=== PATIENT | male | born 1985 | race Caucasian/White ===

== ENCOUNTER 2017-05-01 11:54 | Emergency (ER) | payer OTHER ==
[2017-05-01] MEDS ORDERED: Lidocaine 1% 20 ML MDV INJECT ONE (12:29)
--- NOTE | 2017-05-01 12:30 | EDM.PDOC ---
ED HPI GENERAL MEDICAL PROBLEM - General Chief Complaint: Laceration Stated Complaint: CUT FINGER L HAND Time Seen by Provider: 05/01/17 12:30 Source of Information: Reports: Patient History Limitations: Reports: No Limitations - History of Present Illness INITIAL COMMENTS - FREE TEXT/NARRATIVE: Celestino is a 31 year old male who presents to the ED today after sustaining injury to left fourth digit after slicing turkey at work. Patient works in the [employer] at [employer]. Patient denies any other injuries. DT is not up to date. Onset: Today Left 4-Ring finger Pain Score (Numeric/FACES): 0 - Related Data Allergies Allergy/AdvReac Type Severity Reaction Status Date / Time No Known Allergies Allergy Verified 05/01/17 12:27 Past Medical History Dermatologic History: Reports: Other (See Below) Other Dermatologic History: laceration L ring finger Social & Family History - Tobacco Use Smoking Status *Q: Never Smoker - Caffeine Use Caffeine Use: Reports: None - Alcohol Use Days Per Week of Alcohol Use: 2 Number of Drinks Per Day: 1 Total Drinks Per Week: 2 - Recreational Drug Use Recreational Drug Use: No ED ROS GENERAL - Review of Systems Review Of Systems: ROS reveals no pertinent complaints other than HPI. ED EXAM, SKIN/RASH Exam: See Below Exam Limited By: No Limitations General Appearance: Alert, WD/WN, No Apparent Distress Head: Atraumatic Respiratory/Chest: No Respiratory Distress Cardiovascular: Regular Rate, Rhythm Extremities: Normal Inspection Neurological: Oriented Psychiatric: Normal Affect, Normal Mood Skin: Warm, Dry, Other (.5 cm avulsion to left lateral tip of left fourth digit , sparring nail bed, no bone protrusion. 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 Patient on exam has sustained a lateral finger tip avulsion, please refer to HPI and focused exam. LET was applied for 20 minutes, wound cleaned well and irrigated, surgicell applied and finger bandaged. DT was updated. Work comp paperwork completed. Patient to establish primary care and follow up in the next week. Wound care discussed in detail as well as reasons to return to the ED. Encouraged scheduled ibuprofen. small amount of Alvord for severe pain. Patient agreeable to plan of care and questions were answered prior to discharge. Patient discharged in stable condition. Last Recorded V/S: Last Vital Signs Temp 36.3 C 05/01/17 12:10 Pulse 81 05/01/17 12:10 Resp 18 05/01/17 12:10 BP 140/86 05/01/17 12:10 Pulse Ox - Orders/Labs/Meds Orders: Active Orders 24 hr Category Date Time Status Vaccines to be Administered [RC] PER UNIT ROUTINE Care 05/01/17 13:08 Active Meds: Medications Discontinued Medications Generic Name Dose Route Start Last Admin Trade Name Freq PRN Reason Stop Dose Admin Diphtheria/Tetanus/Acell Pertussis 0.5 ml 05/01/17 13:08 05/01/17 13:17 Adacel IM 05/01/17 13:09 0.5 ml .ONCE ONE Administration Lidocaine HCl 20 ml 05/01/17 12:29 05/01/17 12:38 Xylocaine 1% INJECT 05/01/17 12:30 Not Given ONETIME ONE Lidocaine/Tetracaine 5 ml 05/01/17 12:33 05/01/17 12:38 Let Soln TOP 05/01/17 12:34 5 ml ONETIME ONE Administration Departure - Departure Time of Disposition: 13:45 Disposition: Home, Self-Care 01 Condition: Good Clinical Impression: Laceration - Discharge Information Instructions: Laceration Care, Adult Forms: ED Department Discharge Additional Instructions: Keep current dressing on for 24 hours. apply Bacitracin twice daily after that and keep clean and covered Establish primary care and follow up in one week. Take Ibuprofen scheduled for the next 3 days, 600 mg every 6 hours. Take Alvord for severe pain (Narcotic, no driving if you take it). Return to the ED with any signs of infection. - My Orders Last 24 Hours: My Active Orders 05/01/17 13:08 Vaccines to be Administered [RC] PER UNIT ROUTINE - Assessment/Plan Last 24 Hours: My Active Orders 05/01/17 13:08 Vaccines to be Administered [RC] PER UNIT ROUTINE
[2017-05-01] MEDS ORDERED: Lidocaine/EPINEPHrine/Tetracaine Soln 5 ML Each TOP ONE (12:33)
[2017-05-01] MEDS ORDERED: Diphtheria,Pertussis(Acell),Tetanus Vaccine 0.5 ML SDV IM ONE (13:08)
[2017-05-01 13:09] VITALS: BP 140/86
== END 2017-05-01 13:37 | disposition home or self-care (01) ==
LOC: JP.ED 11:54
DX: S61.215A Laceration without foreign body of left ring finger without damage to nail, initial encounter (principal); Z23 Encounter for immunization; W26.8XXA Contact with other sharp object(s), not elsewhere classified, initial encounter
CPT/HCPCS: 90471; 90715; 99283; A9270

== ENCOUNTER 2017-05-06 16:24 | Emergency (ER) | payer OTHER ==
[2017-05-06 17:49] VITALS: BP 125/94
--- NOTE | 2017-05-06 18:33 | EDM.PDOC ---
ED HPI GENERAL MEDICAL PROBLEM - General Chief Complaint: Wound Recheck Stated Complaint: CHECK LT RING FINGER Time Seen by Provider: 05/06/17 18:18 Source of Information: Reports: Patient History Limitations: Reports: No Limitations - History of Present Illness INITIAL COMMENTS - FREE TEXT/NARRATIVE: Patient presents for wound re-check. He reports his pain is controlled with use of ibuprofen and Warren. He states he was not able to remove surgicel from wound. Location: Reports: Other (Left 4th finger, 0.5cm avulsion to left lateral tip fo fourth digit, sparing nail bed. ) - Related Data Allergies Allergy/AdvReac Type Severity Reaction Status Date / Time No Known Allergies Allergy Verified 05/01/17 12:27 Home Meds: Home Meds Hydrocodone/Acetaminophen [Hydrocodon-Acetaminophen 5-325] 1 each PO ASDIRECTED 05/06/17 [History] Past Medical History - Past Health History Medical/Surgical History: Denies Medical/Surgical History Dermatologic History: Reports: Other (See Below) Other Dermatologic History: laceration L ring finger Social & Family History - Tobacco Use Smoking Status *Q: Never Smoker - Caffeine Use Caffeine Use: Reports: None - Alcohol Use Days Per Week of Alcohol Use: 2 Number of Drinks Per Day: 1 Total Drinks Per Week: 2 - Recreational Drug Use Recreational Drug Use: No ED ROS GENERAL - Review of Systems Review Of Systems: See Below Constitutional: Denies: Fever, Chills Respiratory: Reports: No Symptoms Cardiovascular: Reports: No Symptoms Musculoskeletal: Reports: Other (left finger and hand pain at times. ) Skin: Reports: Other (Avulsion left 4th digit - lateral side. ) Neurological: Denies: Numbness, Tingling Psychiatric: Reports: No Symptoms Hematologic/Lymphatic: Reports: No Symptoms Immunologic: Reports: No Symptoms ED EXAM, SKIN/RASH Exam: See Below Exam Limited By: No Limitations General Appearance: Alert, WD/WN, No Apparent Distress Respiratory/Chest: No Respiratory Distress, Lungs Clear, Normal Breath Sounds, No Accessory Muscle Use, Chest Non-Tender Cardiovascular: Normal Peripheral Pulses, Regular Rate, Rhythm, No Edema, No Gallop, No Murmur, No Rub Peripheral Pulses: 2+: Radial (L), Radial (R) Extremities: Normal Range of Motion, Normal Capillary Refill, Other (avulsion to left finger, surgicel in place. Mild pain with movement and palpation. No signs of infection or fluctuance. ) Neurological: Alert, Oriented, CN II-XII Intact, Normal Cognition, Normal Gait, No Motor/Sensory Deficits Psychiatric: Normal Affect, Normal Mood Skin: Warm, Dry, Normal Color, No Rash Associated features: Tenderness, Crusting. No: Warmth, Induration, Inflammation , Weeping Lymphatic: No Adenopathy Course - Vital Signs Last Recorded V/S: Last Vital Signs Temp 36.3 C 05/06/17 18:05 Pulse 78 05/06/17 18:05 Resp 14 05/06/17 18:05 BP 125/94 H 05/06/17 18:05 Pulse Ox 97 05/06/17 18:05 - Re-Assessments/Exams Free Text/Narrative Re-Assessment/Exam: 05/06/17 18:34 Finger soaked in saline to assist with removal of excess surgicel. 05/06/17 18:45 Departure - Departure Time of Disposition: 18:45 Disposition: Home, Self-Care 01 Condition: Good Clinical Impression: Avulsion of finger tip - Discharge Information Instructions: Wound Infection, [id number] Referrals: PCP,None [Primary Care Provider] - Forms: ED Department Discharge Additional Instructions: Continue use of ibuprofen 600mg by mouth three times a day as needed for pain. For Breakthrough pain you can continue to use Warren you have remaining. Apply Bacitracin twice daily, keep wound clean and dry. Return to your primary care provider for wound check within the next week. Return for signs of infection or worsening. - Assessment/Plan Assessment:: Healing avulsion left lateral digit, sparing nail bed. Plan: Surgicel removed, patient tolerated well. Continue with wound care as directed. Ibuprofen and remaining Warren as directed. Establish care with a primary care provider this week.
== END 2017-05-06 19:05 | disposition home or self-care (01) ==
LOC: JP.ED 16:24
DX: S61.207D Unspecified open wound of left little finger without damage to nail, subsequent encounter (principal); X58.XXXD Exposure to other specified factors, subsequent encounter
CPT/HCPCS: 99282; 99283